=== PATIENT | female | born 1975 | race American Indian/Alaskan Native ===

== ENCOUNTER 2020-05-18 13:48 | Emergency (ER) | payer SELFPAY ==
--- NOTE | 2020-05-18 14:04 | Event Note ---
ED Screening Note Date of service: 05/18/20 Time: 14:03 ED Screening Note: This 45-year-old female with a history of diabetes and hypertension who presents the ED complaining of shortness of breath, intermittent coughing, headache and chills that began last night. Patient states she went to [facility] and got tested for Covid and was positive. This initial assessment/diagnostic orders/clinical plan/treatment(s) is/are subject to change based on patients health status, clinical progression and re- assessment by fellow clinical providers in the ED. Further treatment and workup at subsequent clinical providers discretion. Patient/guardian urged not to elope from the ED as their condition may be serious if not clinically assessed and managed. Initial orders include: Labs, chest x-ray
[2020-05-18 14:07] VITALS: BP 146/89
[2020-05-18 14:26] LABS: Hematocrit 40.1 % (30.3-42.9); Hemoglobin 13.1 gm/dl (10.1-14.3); Mean Corpuscular HGB Conc 33 % (30-34); Mean Corpuscular Volume 86 fl (79-97); Platelet Count 341 K/mm3 (140-440); Red Blood Count 4.65 M/mm3 (3.65-5.03); Red Cell Distribution Width 15.5 % (13.2-15.2)
--- NOTE | 2020-05-18 14:32 | XRay Report ---
CHEST PA AND LATERAL VIEWS INDICATION: cp. COMPARISON: None. FINDINGS: Support devices: None. Heart: Within normal limits. Lungs/Pleura: No acute pulmonary or pleural findings. IMPRESSION: 1. No acute findings. Signer Name: Joby Allan MD Signed: 05/18/2020 2:28 PM Workstation Name: [id number]
[2020-05-18 15:15] LABS: Alanine Aminotransferase 17 units/L (7-56); Blood Urea Nitrogen 10 mg/dL (7-17); Calcium 9.1 mg/dL (8.4-10.2); Hemolysis Index 1
[2020-05-18] MEDS ORDERED: ACETAMINOPHEN 500 MG TAB PO ONE (15:27)
[2020-05-18 15:43] LABS: Total Cells Counted 100
[2020-05-18 15:44] LABS: BUN/Creatinine Ratio 14
[2020-05-18] MEDS ORDERED: predniSONE 20 MG TAB PO ONE (15:44)
[2020-05-18 15:45] LABS: RBC Morphology Normal
--- NOTE | 2020-05-18 15:48 | Emergency Department Report ---
Minor Respiratory - HPI Chief Complaint: Upper Respiratory Infection Stated Complaint: COVID POS/CHEST PAIN Duration: 2 Days Pain Location: Chest Severity: moderate Minor Respiratory: Yes Able to Tolerate Fluids, Yes Cough, Yes Sick Contacts, Yes Shortness of Breath, Yes Fever, No Rhinorrhea, No Sore Throat, No Ear Pain, No Hemoptysis, No Chest Pain Other History: 45-year-old female with a history of diabetes presents to the ED complaining of shortness of breath intermittent coughing stating that she got tested for for Covid and was positive. Patient presents today with states she is having upper respiratory symptoms such as intermittent coughing, headache. ED Review of Systems ROS: Stated complaint: COVID POS/CHEST PAIN Other details as noted in HPI Comment: All other systems reviewed and negative ED Past Medical Hx - Past Medical History Previous Medical History?: Yes Hx Diabetes: Yes Hx Headaches / Migraines: Yes - Surgical History Past Surgical History?: No - Social History Smoking Status: Never Smoker Substance Use Type: None - Medications Home Medications: Home Medications Medication Instructions Recorded Confirmed Last Taken Type Albuterol Mdi (or & Nicu Only) 2 puff IH QID PRN #1 pump 05/18/20 Unknown Rx [ProAir HFA Inhaler] Azithromycin [Zithromax] 250 mg PO DAILY #6 tablet 05/18/20 Unknown Rx Benzonatate [Tessalon Perles] 100 mg PO Q8HR #30 capsule 05/18/20 Unknown Rx Minor Respiratory Exam - Exam General: Vital signs noted. No distress. Alert and acting appropriately. HEENT: Yes Moist Mucous Membranes, No Pharyngeal Erythema, No Pharyngeal Exudates, No Rhinorrhea, No Conjuctival Injection, No Frontal Tenderness, No Maxillary Tenderness Ear: Neither TM Bulge, Neither TM Erythema, Neither EAC Pain, Neither EAC Discharge Neck: Yes Supple, No Adenopathy Lungs: Yes Good Air Exchange, No Wheezes, No Ronchi, No Stridor, No Cough, No Labored Respirations, No Retractions, No Use of Accessory Muscles, No Other Abnormal Lung Sounds Heart: Yes Regular, No Murmur Abdomen: Yes Normal Bowel Sounds, No Tenderness, No Peritoneal Signs Skin: No Rash, No Edema Neurologic: Alert and oriented, no deficits. Musculoskeletal: Unremarkable. ED Course Vital Signs 05/18/20 14:04 Temperature 100.6 F H Pulse Rate 103 H Respiratory 20 Rate Blood Pressure 146/89 O2 Sat by Pulse 99 Oximetry ED Medical Decision Making - Lab Data Result diagrams: 05/18/20 14:13 05/18/20 14:13 - Radiology Data Radiology results: report reviewed, image reviewed CHEST PA AND LATERAL VIEWS INDICATION: cp. COMPARISON: None. FINDINGS: Support devices: None. Heart: Within normal limits. Lungs/Pleura: No acute pulmonary or pleural findings. IMPRESSION: 1. No acute findings. Signer Name: Joby Allan MD Signed: 05/18/2020 2:28 PM Workstation Name: [id number] Transcribed By: ALEXI Dictated By: Joby Allan MD Electronically Authenticated By: Joby Allan MD Signed Date/Time: 05/18/20 1426 - Medical Decision Making 30-year-old male presents with upper respiratory symptoms/viral-like symptoms for COVID-19 Fever resolved during the ED stay with 1 dose of Tylenol. Chest x-ray shows no signs of pneumonia Discussed with patient symptomatic relief with [id number] medications. Discussed with patient COVID-19 symptoms may last up to 2 weeks just like the flu. Discussed with patient for 14-day quarantine Patient oxygen saturation stayed at 98% on room air during exertion and after exertion. Discussed increase fluids and diet intake. Discussed rest much needed. Discussed daily vitamin C and zinc for immune booster. Patient verbally states she understands and will comply the following instructions and follow-up Vital signs stable. Patient is in no acute distress on exam: Non toxic appearing, no acute distress Due to patient presenting with COVID-19, discussed self quarantine with patient, discussed strict return precautions, discussed primary care reexamina tion advised pt Please increase your water intake over the next several days. May take Tylenol as needed for body aches or fever. May take telo-uup-vexiwed medication to treat your symptoms. Follow-up with a primary care doctor in the next 2 to 3 days. Return to emergency room immediately for any new or worsening symptoms including but not limited to shortness of breath, difficulty breathing, severe chest pain, unable to tolerate by mouth intake, etc. Please self quarantine for 2 weeks from the onset of your symptoms. Please do not go out in public. If you are at home around others please wear a mask. If you need to cough or sneeze please do so in a napkin and immediately wash your hands. Wash your hands frequently. Wipe everything down. Critical care attestation.: If time is entered above; I have spent that time in minutes in the direct care of this critically ill patient, excluding procedure time. ED Disposition Clinical Impression: COVID-19, Upper respiratory infection Disposition: DC- TO HOME OR SELFCARE Is pt being admited?: No Does the pt Need Aspirin: No Condition: Stable Instructions: Viral Respiratory Infection, [id number], COVID-19 Additional Instructions: Make sure to follow up with the primary care physician as discussed. Take all your medications as you've been prescribed. If you have any worsening symptoms or develop new symptoms please return to ED immediately. Referrals: WAYNE AGGARWAL MD [Primary Care Provider] - 3-5 Days [facility] [Outside] - 3-5 Days Forms: Work/School Release Form(ED) Time of Disposition: 17:46
== END 2020-05-18 18:04 | disposition home or self-care (01) ==
LOC: ED 13:48
DX: U07.1 COVID-19 (principal); J06.9 Acute upper respiratory infection, unspecified; E11.9 Type 2 diabetes mellitus without complications; G43.909 Migraine, unspecified, not intractable, without status migrainosus; Z79.899 Other long term (current) drug therapy
CPT/HCPCS: 36415; 71046; 80053; 85007; 85025; 99284; J7512